=== PATIENT | female | born 1945 | race Caucasian/White ===

== ENCOUNTER 2023-03-19 07:54 | Inpatient (IN) | payer MEDICARE ==
[~2023-03-19] VITALS: Ht 160 cm; Wt 108.0 kg
[2023-03-19] VITALS (8 sets, daily range): BP systolic 108–135; BP diastolic 61–80
[~2023-03-19 07:54] MED LIST: CIPR500 PO; METR500
[2023-03-19] MEDS ORDERED: ALENDRONATE SOD70 MG PO (08:21)
[2023-03-19] MEDS ORDERED: ESCI20 PO (08:21)
[2023-03-19] MEDS ORDERED: PRED5 PO (08:22)
[2023-03-19] MEDS ORDERED: SERT25 PO (08:23)
[2023-03-19] MEDS ORDERED: FURO40 PO (08:25)
[2023-03-19] MEDS ORDERED: [UNRECOGNIZED DRUG - CODE] PO (08:26)
[2023-03-19] MEDS ORDERED: ASPIR 8181 MG PO (08:26)
[2023-03-19] MEDS ORDERED: ALBU90OI INH (08:27)
[2023-03-19] MEDS ORDERED: COQ-10100 MG PO (08:27)
[2023-03-19] MEDS ORDERED: [UNRECOGNIZED DRUG - OTHER] PO (08:27)
[2023-03-19 08:44] LABS: Hematocrit 51.6 % (33.0-51.0); Hemoglobin 16.5 g/dL (11.5-16.0); Mean Corpuscular HGB 29.6 pg (26.0-34.0); Mean Corpuscular Volume 93 fL (80-100); Mean Platelet Volume 10.5 fL (9.1-12.4); Platelet Count 157 K/mm3 (150-400); RDW Coefficient Variation 13.8 % (11.7-14.2); RDW Standard Deviation 47.3 fL (35.1-46.3); Red Blood Cell Count 5.57 M/mm3 (3.80-5.20); White Blood Cell Count 7.15 K/mm3 (4.00-11.30)
[2023-03-19 08:58] LABS: Base Excess Venous 6.4 mmol/L; Bicarbonate Venous 27.5 mmol/L (24.0-30.0); PCO2 Venous 65.8 mmHg (38-42); pH Blood Venous 7.31 (7.34-7.37)
[2023-03-19 09:01] LABS: Albumin, Blood 2.9 g/dL (3.4-5.0); Albumin/Globulin Ratio 0.6 (0.8-1.8); Bilirubin, Total 0.3 mg/dL (0.1-1.0); Bun/Creatinine Ratio 23.1 (12.0-20.0); Calcium, Blood 8.1 mg/dL (8.5-10.1); Creatinine, Blood 0.56 mg/dL (0.40-1.00); Globulin, Blood 4.7 g/dL (2.2-4.0); Potassium, Blood 3.8 mmol/L (3.5-5.5); Total Protein, Blood 7.6 g/dL (6.4-8.2)
[2023-03-19 09:12] LABS: BASOPHILS ABSOLUTE MAN 0.07 K/mm3 (0.00-0.23); BASOPHILS PERCENT MAN 1 % (0-2); EOSINOPHILS ABSOLUTE MAN 0.14 K/mm3 (0.00-0.68); EOSINOPHILS PERCENT MAN 2 % (0-6); LYMPHOCYTES % ATYPICAL MANUAL 3 % (0-0); LYMPHOCYTES PERCENT MAN 11 % (21-46); MONOCYTES ABSOLUTE MAN 0.28 K/mm3 (0.16-1.47); MONOCYTES PERCENT MAN 4 % (4-13); NEUTROPHILS ABSOLUTE MAN 5.64 K/mm3 (1.96-9.15); SEG NEUTROPHILS PERCENT MAN 79 % (41-73); TOTAL CELLS COUNTED 100
--- NOTE | 2023-03-19 11:55 | NUR ---
ARRIVAL TO PCU PT BROUGHT TO PCU 20 VIA GURNEY AT THIS TIME. PT IS A&OX4. SHE IS ON 5L NC WITH SPO2 >94%. SHE DENIES SOB AT THIS TIME AND DOES NOT APPEAR IN DISTRESS. BIPAP AT BEDSIDE. SINUS RHYTHM ON MONITOR, BP STABLE. PT ASSISTED TO BEDSIDE COMMODE TO VOID AND HAD SMALL INCONTINENT BM. PT AND DAUGHTER PARTICIPATE IN CONVERSATOIN AND PROVIDE HEALTH HISTORY. BED IN LOW POSITION, CALL LIGHT WITHIN REACH.
[2023-03-19] MEDS ORDERED: FURO20 PO (12:37)
[2023-03-19 13:12] LABS: Influenza A, PCR NEGATIVE (NEGATIVE); Influenza B, PCR NEGATIVE (NEGATIVE); Resp Syncytial Virus, PCR NEGATIVE (NEGATIVE); SARS-Cov-2 (COVID-19) PCR, MMC NEGATIVE (NEGATIVE)
--- NOTE | 2023-03-19 17:44 | NUR ---
SHIFT SUMMARY PT REMAINS ON 5L NC. SHE REPORTS FEELING "ALOT BETTER". PT ENCOURAGED TO WEAR BIPAP TONIGHT AND PT AGREES. LUNGS ARE CLEAR, DIMINISHED IN BASES. VSS THROUGHOUT THE SHIFT. FAMILY MEMBERS HAVE BEEN VISITING AT BEDSIDE. BED IN LOW POSITION AND CALL LIGHT WITHIN REACH.
[2023-03-20] VITALS (7 sets, daily range): BP systolic 110–153; BP diastolic 63–91
[2023-03-20 04:23] LABS: BASOPHILS ABSOLUTE AUTO 0.03 K/mm3 (0.00-0.23); BASOPHILS PERCENT AUTO 0 % (0-2); EOSINOPHILS PERCENT AUTO 0 % (0-6); Hematocrit 45.5 % (33.0-51.0); Hemoglobin 14.4 g/dL (11.5-16.0); IMMATURE GRAN ABSOLUTE AUTO 0.07 K/mm3 (0.00-0.10); IMMATURE GRAN PERCENT AUTO 1 % (0-1); LYMPHOCYTES ABSOLUTE AUTO 0.67 K/mm3 (0.84-5.20); LYMPHOCYTES PERCENT AUTO 8 % (21-46); MONOCYTES ABSOLUTE AUTO 0.28 K/mm3 (0.16-1.47); MONOCYTES PERCENT AUTO 3 % (4-13); Mean Corpuscular HGB 29.2 pg (26.0-34.0); Mean Corpuscular HGB Conc 31.6 g/dL (31.5-36.5); Mean Corpuscular Volume 92 fL (80-100); Mean Platelet Volume 10.9 fL (9.1-12.4); NEUTROPHILS ABSOLUTE AUTO 7.71 K/mm3 (1.96-9.15); NEUTROPHILS PERCENT AUTO 88 % (41-73); Platelet Count 198 K/mm3 (150-400); RDW Coefficient Variation 13.8 % (11.7-14.2); RDW Standard Deviation 47.2 fL (35.1-46.3); Red Blood Cell Count 4.93 M/mm3 (3.80-5.20); White Blood Cell Count 8.76 K/mm3 (4.00-11.30)
[2023-03-20 04:48] LABS: Albumin, Blood 2.5 g/dL (3.4-5.0); Albumin/Globulin Ratio 0.6 (0.8-1.8); Bilirubin, Total 0.3 mg/dL (0.1-1.0); Bun/Creatinine Ratio 23.5 (12.0-20.0); Calcium, Blood 7.7 mg/dL (8.5-10.1); Creatinine, Blood 0.6 mg/dL (0.40-1.00); Globulin, Blood 4.2 g/dL (2.2-4.0); Potassium, Blood 3.9 mmol/L (3.5-5.5); Total Protein, Blood 6.7 g/dL (6.4-8.2)
--- NOTE | 2023-03-20 05:50 | NUR ---
SHIFT SUMMARY NO ACUTE CHANGES THIS SHIFT. VSS. AXO. ON 3L NC WHILE AWAKE. ON CPAP 3L BLEEDIN WHLE ASLEEP, SPO2 95%. IN SR. INCONTINENT AT TIMES. PT HAS BEEN RESTING FOR MAJORITY OF SHIFT. PLEASANT AND COOPERATIVE. IGNITION ASSESMENT COMPLETED. EDUCATION PROVIDED. BED ALARM ON. USING CALL LIGHT APPROPRIATELY.
--- NOTE | 2023-03-20 07:22 | NUR ---
Pt getting up to recliner chair with help from PCT, wearing oxygen at 3 l/min and during the activity spo2 drops to 83% while she is moving and talking. Moderate dyspnea noted. Recovery after sitting was quick. She has no complaints this morning. Fine crackles noted in the bilateral bases, posteriorly. Pt states that she has had some coughing last night, some sputum but very little. She did not note the color of it. sTates uses CPAP at home, but not any oxygen.
--- NOTE | 2023-03-20 08:47 | NUR ---
pt states that she sees a wellfield technician in [place], Dr. Dylan Singh @[facility] [phone] (phone) [phone] (fax)
--- NOTE | 2023-03-20 08:51 | NUR ---
Dr. Hicks here rounding on the patient.
--- NOTE | 2023-03-20 18:19 | NUR ---
Pt was helped up to shower this afternoon. Ambulatory to the shower using her 4 wheeled walker from home. Tolerated the activity well, on 3 l/min of oxygen. AT rest she is only requiring 1-2 l/min of O2 while awake. Appetite good. Had 1 loose/liquid browm BM today.
[2023-03-21 04:07] VITALS: BP 153/92
[2023-03-21 04:37] LABS: Hematocrit 47.8 % (33.0-51.0); Hemoglobin 15.3 g/dL (11.5-16.0); Mean Corpuscular HGB 29.7 pg (26.0-34.0); Mean Corpuscular Volume 93 fL (80-100); Mean Platelet Volume 10.6 fL (9.1-12.4); Platelet Count 223 K/mm3 (150-400); RDW Coefficient Variation 13.9 % (11.7-14.2); RDW Standard Deviation 47.7 fL (35.1-46.3); Red Blood Cell Count 5.16 M/mm3 (3.80-5.20); White Blood Cell Count 18.03 K/mm3 (4.00-11.30)
[2023-03-21 05:08] LABS: Bun/Creatinine Ratio 39.6 (12.0-20.0); Calcium, Blood 8.6 mg/dL (8.5-10.1); Creatinine, Blood 0.86 mg/dL (0.40-1.00)
--- NOTE | 2023-03-21 05:14 | NUR ---
SHIFT SUMMARY NO ACUTE CHANGES THIS SHIFT. VSS. AXO. ON 2LNC, NEEDS TITRATION TO 5LNC WHEN AMBULATING TO BATHROOM BUT RECOVERS TO SPO2 >93% WITHIN 3 MINUTES. LUNGS REMAIN WIOTH BILAT CRACKLES AND WHEEZING AT TIMES. INCONTINENT, PUREWICK IN PLACE. USES CALL LIGHT APPROPRIATELY. IGNITION ASSESMENT COMPLETED. EDUCATION PROVIDED ABOUT IGNITION SOURCES AND SMOKE-FREE CAMPUS RULES.
[2023-03-21 08:31] VITALS: BP 122/74
[2023-03-21 11:35] VITALS: BP 123/73
[2023-03-21 17:29] VITALS: BP 142/84
--- NOTE | 2023-03-21 18:34 | NUR ---
SUMMARY: A/O, VSS, TELE SR 70'S. ATTEMPTED TO WEAN 02 TODAY. PT DROPS TO 87% ON RA, CURRENTLY ON 2L AT 96%. HOME O2 EVAL COMPLETED, SEE RT NOTES. PLAN IS FOR HOME WITH FAMILY ON . SOLU MEDRAL GIVEN AND SCHEDULED ALBUTEROL TX. PT DENIES ANY SOB AT REST, SOME WITH EXERTION. NO ACUTE SAFETY CONCERNS
[2023-03-21 20:00] VITALS: BP 144/85
[2023-03-22] VITALS (7 sets, daily range): BP systolic 116–159; BP diastolic 76–97
[2023-03-22 04:23] LABS: Bun/Creatinine Ratio 50.8 (12.0-20.0); Calcium, Blood 8.3 mg/dL (8.5-10.1); Creatinine, Blood 0.77 mg/dL (0.40-1.00); Potassium, Blood 4.4 mmol/L (3.5-5.5)
--- NOTE | 2023-03-22 05:59 | NUR ---
SHIFT SUMMARY PT REMAINS A&O X4. VSS; BP 140'S, SR/ST WITH HR IN 90'S-100'S. PT REMAINS ON 2 L VIA NC, SPO2 >96%. PT SOB WITH EXERTION. PT HAS OCCASSIONAL DRY COUGH. LS MILDLY WHEEZY. PT WORE CPAP THROUGHOUT THE NIGHT. PT AFEBRILE THROUGHOUT SHIFT. PT UP TO RESTROOM W/FWW AND ASSISTANCE. PURWICK AND ATTENDS ALSO IN PLACE D/T SOME URINE INCONTINENCE. PT TOLERATES AMBULATING TO RESTROOM WELL. NO ACUTE CHANGES THROUGHOUT SHIFT. PT RESTED WELL. CALL LIGHT IN REACH. WILL UPDATE ONCOMING RN
--- NOTE | 2023-03-22 10:19 | NUR ---
AM NOTES; PT TRANSITIONED TO MEDICAL STATUS NO TELE. PT HAS BEEN COOPERATIVE WITH CARES, PLEASANT AND COHERENT. VITALS HRR SINUS TACH 100'S, SBP 140'S, SATS ABOVE 90% WAS ABLE TO TITRATE DOWN TO 1L, AFEBRILE. PT HAS BEEN GETTING UP TO USE THE BATHROOM AND RECLINER, 1PA. PT HAS MOIST NON PRODUCTIVE COUGH PROVIDER MADE AWARE PT DESATS WITH COUGHING SPELLS REQUESTING COUGH MEDS AWAITING FOR ORDERS, HAS SOME WHEEZES ON THE LUNG BASES UPON AUSCULTATION, BREATHING TX PER RT/PER PT'S REQUESTS, FLUTTER VALVE AT THE BEDSIDE PT EDUCATED ABOUT USE AND IMPORTANCE. PT IN BED AT THIS TIME RESTING, PT FOR POSSIBLE DISCHARGE TOMORROW IF PT IS A LOT MUCH BETTER. ABLE TO MAKE NEEDS KNOWN, CALL LIGHTS IN REACH WILL CONTINUE TO MONITOR
--- NOTE | 2023-03-22 16:59 | NUR ---
SHIFT SUMMARY PT IS ALERT AND ORIENTED X 4, SHE IS ABLE TO MAKE HER NEEDS KNOWN. SPO2 MAINTAINED >95% VIA 1L NC, PT APPEARS SOB UPON EXERTION. HR AND BP STABLE. SHE DENIES FEELINGS OF PAIN AND NAUSEA, SHE DENIES FEELINGS OF CHEST PAIN/PRESSURE. SHE IS A SBA TO BATHROOM, POWERGLIDE IS SALINE LOCKED. PT USES PW DEVICE WHILE SLEEPING BUT DENIED NEED AFTER SHOWER THIS AFTERNOON. EDMEA 2+ NOTED IN BILATERAL FEET/ANKLES. SHE IS CURRENTLY UP IN CHAIR AND APPEARS TO BE EATING DINNER. CALL LIGHT IS W/IN REACH. WILL CONTINUE TO MONITOR AND REPORT TO ONCOMING RN.
[2023-03-23] VITALS: BP 143/77
[2023-03-23 03:38] VITALS: BP 151/101
--- NOTE | 2023-03-23 04:07 | NUR ---
SHIFT SUMMARY/TRANSFER PATIENT ARRIVED ON UNIT AT 03:30 FROM PCU. IS A/Ox4, DENIES PAIN NOR DISCOMFORT. PATIENT ORIENTED TO ROOM AND UNIT. EDUCATED ON FIRE SAFETY AND RISK OF INJURY R/T OXYGEN USE, VERBALIZED UNDERSTANDING, DENIES SMOKING NOR ACCESS TO ANY SOURCES OF IGNITION. SBA WITH FWW AND GAIT BELT. PG TO LEFT UPPER ARM, PATENT, FLUSHING WELL, SL. APPEARES TO BE RESTING IN BED IN NO ACUTE DISTRESS AT THIS TIME. BED LOW, CALL LIGHT WITHIN REACH.
[2023-03-23 05:38] LABS: BASOPHILS ABSOLUTE AUTO 0.02 K/mm3 (0.00-0.23); BASOPHILS PERCENT AUTO 0 % (0-2); EOSINOPHILS PERCENT AUTO 0 % (0-6); Hematocrit 42.7 % (33.0-51.0); Hemoglobin 13.9 g/dL (11.5-16.0); Mean Corpuscular HGB 29.3 pg (26.0-34.0); Mean Corpuscular HGB Conc 32.6 g/dL (31.5-36.5); Mean Corpuscular Volume 90 fL (80-100); Mean Platelet Volume 10.9 fL (9.1-12.4); Platelet Count 201 K/mm3 (150-400); RDW Coefficient Variation 14.1 % (11.7-14.2); RDW Standard Deviation 46.2 fL (35.1-46.3); Red Blood Cell Count 4.74 M/mm3 (3.80-5.20); White Blood Cell Count 11.29 K/mm3 (4.00-11.30)
[2023-03-23 05:41] LABS: IMMATURE GRAN ABSOLUTE AUTO 0.11 K/mm3 (0.00-0.10); IMMATURE GRAN PERCENT AUTO 1 % (0-1); LYMPHOCYTES ABSOLUTE AUTO 0.71 K/mm3 (0.84-5.20); LYMPHOCYTES PERCENT AUTO 6 % (21-46); MONOCYTES ABSOLUTE AUTO 0.43 K/mm3 (0.16-1.47); MONOCYTES PERCENT AUTO 4 % (4-13); NEUTROPHILS ABSOLUTE AUTO 10.02 K/mm3 (1.96-9.15); NEUTROPHILS PERCENT AUTO 89 % (41-73)
--- NOTE | 2023-03-23 06:07 | NUR ---
SHIFT SUMMARY AND TRANSFER NOTE PT A&O X4 DURING SHIFT. VSS. NO ACUTE CHANGES. PT REMAINS ON 1L NC WHILE AWAKE, USES CPAP AT HS. PT HAD BM X2; LOOSE, MEDIUM AND BROWN/GREEN IN COLOR. PT VOIDING. PT AMBULATING W/FWW AND GAIT BELT TO RESTROOM W/1PA. PT TRANSFERRED TO MEDICAL FLOOR AT 0330. REPORT TO JAYLON RAMOS. PT TRANSFERRED VIA PCU HOSPITAL BED ON 1 L NC. PT BELONGINGS SENT WITH PT.
--- NOTE | 2023-03-23 07:37 | NUR ---
ASSUMED CARE: PT SITTING UP IN BED, DANGLING FEET OFF THE SIDE. RT AND ASIAN STUDIES PROFESSOR AT BEDSIDE. 2L O2 VIA NC. DENIES NEEDS OR CONCERNS AT THIS TIME.
[2023-03-23 07:38] VITALS: BP 147/88
--- NOTE | 2023-03-23 12:01 | NUR ---
FAMILY ARRIVED AND STATED THAT NONE OF PT'S OXYGEN WAS DELIVERED TO HOME IN [place]. CALL TO ROBE WHO STATED HISTOTECHNOLOGIST WILL CALL SHORTLY. CALL TO DR GUERRERO TO INFORM HER THAT OF THIS TIME, PT HAS NONE OF HER OXYGEN EQUIPMENT. STATED TO CALL DR CORONA WITH UPDATE ONCE HISTOTECHNOLOGIST CALLS. FAMILY INFORMED WELL.
--- NOTE | 2023-03-23 13:27 | NUR ---
ROBE SITE IDENTIFICATION SPECIALIST HERE AND CALLED OFFICE TO VERIFY IF [facility] HAS DELIVERED PT'S SUPPLIES. STATES HE WILL BRING PORTABLE O2 ONCE THAT GETS CLARIFIED.
--- NOTE | 2023-03-23 15:28 | NUR ---
IGNITION RISK: PT DENIES THE POSSESSION OF MATCHES, LIGHTERS OR CIGARRETTES. STATES SHE HAS NEVER BEEN A SMOKER
[2023-03-23 15:36] VITALS: BP 128/90
--- NOTE | 2023-03-23 16:05 | NUR ---
CALL TO DR CORONA TO LET HIM KNOW THAT FAMILY IN [place] CALLED AND STATED THAT SUPPLIES WERE BEING DELIVERED. STATED HE WOULD WRITE DC ORDERS AND PT COULD BE DISCHARGED ONCE PORTABLE OXYGEN IS DELIVERED TO ROOM.
[2023-03-23] MEDS ORDERED: IPRAT-ALBUT 0.5-3 ML INH (16:34)
[2023-03-23] MEDS ORDERED: FLUTICASONE-SA1 EAC1 INH (16:34)
--- NOTE | 2023-03-23 17:02 | NUR ---
DISCHARGE INSTRUCTIONS GIVEN TO PT AND FAMILY REGARDING FOLLOW UP APPOINTMENTS, OXYGEN USE, NEW MEDICATIONS AND PHONE NUMBERS TO CALL FOR QUESTIONS. O2 CANNISTERS DELIVERED AND ROBE IN PROCESS OF DELIVERING HOME O2. IV DC'D WNL. DENIED FURTHER NEEDS OR CONCERNS.
== END 2023-03-23 17:03 | disposition home or self-care (01) | DRG 189 ==
LOC: ER 07:54 → PCU 10:08 → MEDS 03-23 03:30
PROVIDERS: Family Medicine; Physician Assistant; ADMIT Hospitalist
PROC: 5A09357 Assistance with Respiratory Ventilation, Less than 24 Consecutive Hours, Continuous Positive Airway Pressure (ICD-10-PCS; principal; 2023-03-19)
DX: J96.01 Acute respiratory failure with hypoxia (principal); N39.0 Urinary tract infection, site not specified; J44.1 Chronic obstructive pulmonary disease with (acute) exacerbation; J96.02 Acute respiratory failure with hypercapnia; F32.A Depression, unspecified; R60.0 Localized edema; G47.33 Obstructive sleep apnea (adult) (pediatric); M81.0 Age-related osteoporosis without current pathological fracture; Z20.822 Contact with and (suspected) exposure to COVID-19; I10 Essential (primary) hypertension; Z88.5 Allergy status to narcotic agent; Z79.899 Other long term (current) drug therapy; Z79.82 Long term (current) use of aspirin; Z88.0 Allergy status to penicillin; Z79.51 Long term (current) use of inhaled steroids; Z90.49 Acquired absence of other specified parts of digestive tract; Z90.89 Acquired absence of other organs; Z79.52 Long term (current) use of systemic steroids; Z79.01 Long term (current) use of anticoagulants
CPT/HCPCS: 0241U; 36415; 71045; 80048; 80053; 82803; 83880; 84145; 85025; 85027; 93005; 93010; 94640; 94644; 94660; 94664; 94761; 94762; 96365; 96367; 96375; 99285-25; A9270; J0456; J0696; J1650; J2930; J3475; J7050

== ENCOUNTER 2024-09-28 07:55 | Day surgery (SDC) | payer OTHER ==
[~2024-09-28] VITALS: Ht 160 cm; Wt 111.2 kg
[~2024-09-28 07:55] MED LIST changes: +ALBU90OI INH; +ALENDRONATE SOD70 MG PO; +ASPIR 8181 MG PO; +Balanced Salt Epinephrine Irrigation Solution 500 mL IR SCH; +COQ-10100 MG PO; +ESCI20 PO; +FLUTICASONE-SA1 EAC1 INH; +FURO20 PO; +FURO40 PO; +IPRAT-ALBUT 0.5-3 ML INH; +Lidocaine HCl/Pf 1% 5 ML VIAL XX SCH; +Moxifloxacin HCL 0.5 MG/0.1 ML 0.4MLSYR RIGHTEYE SCH; +PHENYLEPHRINE\\TROPICAMIDE\\TETRACAINE OPHTHALMIC DILATING SOLN RIGHTEYE PRN; +PRED5 PO; +Povidone-Iodine 450 DROP/30 ML Solution ONE; +Povidone-Iodine 450 DROP/30 ML Solution RIGHTEYE SCH; +SERT25 PO; +Tetracaine HCl/Pf 0.5% Opth Soln 4 ml ONE; +[UNRECOGNIZED DRUG - CODE] PO; +[UNRECOGNIZED DRUG - OTHER] PO
[2024-09-28] MEDS ORDERED: Diazepam 2 MG Tab ONE (08:28)
[2024-09-28] MEDS ORDERED: Diazepam 5 MG Tab ONE (08:28)
[2024-09-28] MEDS ORDERED: Ondansetron HCl 2 MG / ML 2ML Vial ONE (08:35)
[2024-09-28] MEDS ORDERED: CITALOPRAM HBR10 MG PO (08:55)
[2024-09-28] MEDS ORDERED: SYMBICORT 16010.2 GM (08:55)
--- NOTE | 2024-09-28 09:05 | NUR ---
09/28/24 0905 OSKAR ACOSTA O2 MONITORED 3L NC CALL LIGHT WITH IN REACH
[2024-09-28 09:48] VITALS: BP 157/68
--- NOTE | 2024-09-28 09:56 | NUR ---
09/28/24 0956 Kristine Stone DAUGHTER AT BEDSIDE
== END 2024-09-28 10:11 | disposition home or self-care (01) ==
LOC: ORSCSDS 07:55
PROVIDERS: Student in an Organized Health Care Education/Training Program
PROC: 08RJ3JZ Replacement of Right Lens with Synthetic Substitute, Percutaneous Approach (ICD-10-PCS; principal; 2024-09-28 09:30)
DX: H25.813 Combined forms of age-related cataract, bilateral (principal); R06.02 Shortness of breath; Z99.81 Dependence on supplemental oxygen; J44.9 Chronic obstructive pulmonary disease, unspecified; Z79.899 Other long term (current) drug therapy
CPT/HCPCS: A9270; J2405; V2632

== ENCOUNTER 2024-10-12 07:43 | Day surgery (SDC) | payer OTHER ==
[~2024-10-12] VITALS: Ht 160 cm; Wt 112.3 kg
[~2024-10-12 07:43] MED LIST changes: +CITALOPRAM HBR10 MG PO; +Diazepam 2 MG Tab PO PRN; +Moxifloxacin HCL 0.5 MG/0.1 ML 0.4MLSYR LEFTEYE SCH; -Moxifloxacin HCL 0.5 MG/0.1 ML 0.4MLSYR RIGHTEYE SCH; +Ondansetron 4 MG SoluTab MM PRN; +PHENYLEPHRINE\\TROPICAMIDE\\TETRACAINE OPHTHALMIC DILATING SOLN LEFTEYE PRN; -PHENYLEPHRINE\\TROPICAMIDE\\TETRACAINE OPHTHALMIC DILATING SOLN RIGHTEYE PRN; +Povidone-Iodine 450 DROP/30 ML Solution LEFTEYE SCH; -Povidone-Iodine 450 DROP/30 ML Solution RIGHTEYE SCH; +SYMBICORT 16010.2 GM; +diazePAM 5 MG,diazePAM 2 MG PO SCH
[2024-10-12] MEDS ORDERED: Tetracaine HCl 0.5% Opth Soln 15 ml ONE (08:34)
[2024-10-12] MEDS ORDERED: Diazepam 10 MG Tab ONE (08:34)
--- NOTE | 2024-10-12 08:55 | NUR ---
10/12/24 0855 Rocio Peerz CONFIRMED DOSE OF VALIUM WITH BEFORE GIVING THIS MEDICATION TO THE PATIENT. DR. TADEO CONFIRMED 10MG VALIUM PO ONE TIME DOSE IN PREOP.
[2024-10-12] MEDS ORDERED: Lidocaine HCl/Pf 1% 5 ML VIAL ONE (09:31)
[2024-10-12 09:40] VITALS: BP 146/71
--- NOTE | 2024-10-12 09:59 | NUR ---
10/12/24 0959 Rocio Andrews D/C INSTRUCTIONS GIVEN TO PT, UNDERSTANDING VERBALIZED. PT HAS ALL BELONGINGS. PT HOOKED BACK UP TO PORTABLE HOME O2 & D/C PACKET & EYE KIT PLACED IN WALKER SEAT PER PT REQUEST. PT DENIES NAUSEA, STATES EYE DISCOMFORT IS TOLERABLE. PT TAKING PEPSI TO GO. PT WHEELED TO PRIVATE VEHICLE WHERE D.I.L. DRIVING PT HOME. NO VISIBLE SIGNS OF DISTRESS NOTED.
== END 2024-10-12 09:55 | disposition home or self-care (01) ==
LOC: ORSCSDS 07:43
PROVIDERS: Student in an Organized Health Care Education/Training Program
PROC: 08RK3JZ Replacement of Left Lens with Synthetic Substitute, Percutaneous Approach (ICD-10-PCS; principal; 2024-10-12 09:30)
DX: H25.12 Age-related nuclear cataract, left eye (principal); H21.81 Floppy iris syndrome; Z96.1 Presence of intraocular lens; I10 Essential (primary) hypertension; G47.33 Obstructive sleep apnea (adult) (pediatric); J44.9 Chronic obstructive pulmonary disease, unspecified; Z99.81 Dependence on supplemental oxygen; J44.89 Other specified chronic obstructive pulmonary disease; Z79.899 Other long term (current) drug therapy
CPT/HCPCS: A9270; J2003; V2632